=== PATIENT | male | born 1985 | race Caucasian/White ===

== ENCOUNTER 2024-04-28 17:11 | Emergency (ER) | payer SELFPAY ==
[2024-04-28 17:17] VITALS: BP 116/76; PULSE 67; RESP 16; TEMP 36.6; O2SAT 100; BMI 24.0
--- NOTE | 2024-04-28 17:41 | XRR_ITS ---
PROCEDURE INFORMATION: Exam: XR Left Ribs with PA Chest Exam date and time: 04/28/2024 6:02 PM Age: 39 years old Clinical indication: Painful respiration; Patient HX: Lt posterior rib pain after 6ft fall; Attn to area just below lt scapula5; Additional info: Lt posterior rib pain after 6ft fall; Attn to area just below lt scapula TECHNIQUE: Imaging protocol: Radiologic exam of the left ribs with PA chest. Views: 3 views COMPARISON: No relevant prior studies available. FINDINGS: Lungs: No pulmonary consolidation. Mild left basilar atelectasis. Right basilar calcified granuloma. Pleural spaces: No pleural effusion or pneumothorax. Heart/Mediastinum: The cardiomediastinal silhouette is within normal limits. Bones/joints: Age-indeterminate left posterolateral 3rd rib fracture which has a chronic appearance, seen only on oblique views. No evidence of displaced rib fracture. Organs: Punctate calcifications projecting over the lower pole of the left kidney may represent nephrolithiasis or overlying artifact. XR/XR ribs LT mn 3V w [id number] IMPRESSION: 1. Questionable nondisplaced, age-indeterminate posterolateral 3rd rib fracture. 2. No evidence of acute cardiopulmonary disease.
[2024-04-28] MEDS: HYDROcodone-acetaminophen 7.5-325 mg Tablet 1 TAB PO (17:57)
--- NOTE | 2024-04-28 18:05 | W.ED.FALL ---
HPI - Fall General: Chief Complaint: Fall Stated Complaint: 6ft fall (landed on concrete) Time Seen by Provider: 04/28/24 17:24 Source: patient Mode of arrival: ambulatory Limitations: no limitations History of Present Illness: Patient is a 39-year-old male present to the emergency department for a fall he suffered last Wednesday. States he fell about 6 feet onto concrete, had an injury to his left ribs where he was seen at a prior emergency department. He had a CT performed then that did not demonstrate any acute findings, was prescribed hydrocodone and discharged home. He states that this did help until on Wednesday he woke up in the morning and went to stretch, and felt and heard a pop in his left posterior rib cage, and has had significant pain since. He states that he has had rib fractures in the past and this feels identical. Reporting 8/10 pain at this time. He is not reporting any shortness of breath, but does note pain with inspiration. No other symptoms reported at this time. No new injury since last Wednesday. MD complaint: fall Onset (ago): week(s) Fall from: from height (distance) (6 ft) Loss of consciousness: None Prolonged down time: no Location of injury: chest (Left ribs) Associated symptoms-after fall: Denies abdominal pain, chest pain, headache(s) or neck pain Related Data Previous Rx's Medication Instructions Recorded hydrocodone 7.5 mg-acetaminophen 1 tab PO Q8H PRN pain #15 tabs 04/28/24 325 mg tablet Allergies Allergy/AdvReac Type Severity Reaction Status Date / Time No Known Allergies Allergy Verified 04/28/24 17:22 Review of Systems General: Reports: 10 or more systems reviewed and unremarkable except in HPI and below Const: Reports: other (Fall 1 week ago); Denies: fever(s) or chills Card: Denies: chest pain Resp: Denies: dyspnea or productive cough GI: Denies: abdominal pain, nausea, vomiting or diarrhea : Denies: flank pain Musc: Reports: other (Left rib pain); Denies: neck pain, back pain, extremity pain, extremity swelling, joint pain, joint swelling, joint redness, joint warmth, limited range of motion or muscle weakness Skin/Breast: Denies: rash Neuro: Denies: headache(s), numbness in extremities or weakness in extremities Physical Exam Const: COMMON NORMALS: no acute distress, patient oriented x3, no limitations, healthy appearing, alert and well nourished HENMT: COMMON NORMALS: normocephalic and atraumatic HEAD & SCALP: normocephalic and atraumatic Neck/C-Spine: COMMON NORMALS: full ROM, supple and no meningeal signs CERVICAL SPINE: No Cervical spine tenderness Chest: OTHER: Left posterior rib tenderness to palpation, no step-off deformity. Resp: COMMON NORMALS: normal respiratory effort, No use of accessory muscles and clear to auscultation bilaterally EFFORT & INSPECTION: Yes able to speak in complete sentences and Yes symmetric chest movement AUSCULTATION: clear to auscultation bilaterally Cardio: COMMON NORMALS: regular rate and regular rhythm RATE: regular rate RHYTHM: regular rhythm Back/Pelvis: OTHER: Abrasion to left upper back Extremity: COMMON NORMALS: normal to inspection, full ROM, capillary refill normal, no joint enlargement and no clubbing, cyanosis or edema Neuro: COMMON NORMALS: patient oriented x3, moves all extremities, no focal motor deficits and no sensory deficits noted SENSORIUM/ORIENTATION: Yes alert MENINGEAL SIGNS: Yes no meningeal signs Skin: COMMON NORMALS: no rashes or lesions noted GENERAL SKIN EXAM: no rashes or lesions noted Course Vital Signs: Vital signs: Vital Signs Temperature 97.9 F 04/28/24 17:17 Pulse Rate 67 04/28/24 17:17 Respiratory Rate 16 04/28/24 17:17 Blood Pressure 116/76 04/28/24 17:17 Pulse Oximetry 100 04/28/24 17:17 Oxygen Delivery Me thod Room Air 04/28/24 17:17 MDM - Fall Medical Decision Making Patient is evaluated here for a fall he suffered a week ago, this is a second emergency department visit. He last had a CT performed at the prior ED visit, did not show anything at that time but he was treated with hydrocodone. He notes that this did help but he ran out, and upon stretching was a morning he felt a pop. Compared to pain with prior fracture. X-ray obtained today did show evidence of potentially a left rib fracture, which is where the patient struck when he fell. This is likely the pain he is reporting, we will continue to control his pain with [place] and have him continue pulmonary hygiene. 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 Reasons to return discussed, with any further pain he is to follow-up with primary care. Lab Data Radiology Impressions Ribs X-Ray 04/28/24 17:41 IMPRESSION: 1. Questionable nondisplaced, age-indeterminate posterolateral 3rd rib fracture. 2. No evidence of acute cardiopulmonary disease. All radiology interpretation(s) finalized by discharge Discharge Plan Discharge Patient Disposition: Home Clinical Impression: Closed rib fracture Qualifiers: Encounter type: subsequent encounter Rib fracture type: single rib Laterality: left Fracture healing: with routine healing Qualified Code(s): S22.32XD - Fracture of one rib, left side, subsequent encounter for fracture with routine healing Condition: Stable Prescriptions: New hydrocodone-acetaminophen 7.5-325 mg tablet 1 tab PO Q8H PRN (Reason: pain) Qty: 15 0RF Discharge Orders: Discharge ED (Routine); Ordered 04/28/24 Ordered By: Nelson Oneal Patient Instructions: Rib Fracture (ED), Opioid Safety Activity Restrictions/Additional Instructions: Pain medications as prescribed. Pulmonary hygiene as discussed. Follow-up with primary care and return with any new or worsening. Stand Alone Forms: Work/School Release Coding Level of Care Code ED Occupational Health Physician for Lynn Marroquin
== END 2024-04-28 19:47 | disposition home or self-care (01) ==
PROVIDERS: Emergency Provider Physician Assistant
DX: S22.32XA Fracture of one rib, left side, initial encounter for closed fracture (principal); S20.412A Abrasion of left back wall of thorax, initial encounter; W17.89XA Other fall from one level to another, initial encounter
CPT/HCPCS: 71101; 99283